=== PATIENT | male | born 1975 | race Caucasian/White ===

== ENCOUNTER → 2020-03-24 | Outpatient (CLI) | payer OTHER ==
[2020-03-25 14:45] LABS: CORONAVIRUS (COVID19) CSH-NRL Negative (Negative)
== END | disposition home or self-care (01) ==
LOC: LAB SHORT 11:52 → LAB EV 11:52
PROVIDERS: Chiropractor
DX: B34.9 Viral infection, unspecified (principal); Z20.828 Contact with and (suspected) exposure to other viral communicable diseases
CPT/HCPCS: U0003

== ENCOUNTER 2023-05-29 07:24 | Day surgery (SDC) | payer OTHER ==
[~2023-05-29] VITALS: Ht 175.3 cm; Wt 97.4 kg
[2023-05-29] MEDS ORDERED: FAMO10 (07:38)
[2023-05-29] MEDS ORDERED: CENTRUM SILVER1 EAC2 (07:38)
[2023-05-29] MEDS ORDERED: Vitamin C100 M1 (07:38)
[2023-05-29] MEDS ORDERED: Chantix1 MG (07:39)
[2023-05-29 09:53] VITALS: BP 133/96
== END 2023-05-29 09:51 | disposition home or self-care (01) ==
LOC: ORSCSDS 07:24
PROVIDERS: Surgery
PROC: 0DB78ZX Excision of Stomach, Pylorus, Via Natural or Artificial Opening Endoscopic, Diagnostic (ICD-10-PCS; principal; 2023-05-29 08:45)
PROC: 0DBN8ZX Excision of Sigmoid Colon, Via Natural or Artificial Opening Endoscopic, Diagnostic (ICD-10-PCS; principal; 2023-05-29 08:45)
PROC: 0DBH8ZX Excision of Cecum, Via Natural or Artificial Opening Endoscopic, Diagnostic (ICD-10-PCS; principal; 2023-05-29 08:45)
PROC: 0DBL8ZX Excision of Transverse Colon, Via Natural or Artificial Opening Endoscopic, Diagnostic (ICD-10-PCS; principal; 2023-05-29 08:45)
PROC: 0DB48ZX Excision of Esophagogastric Junction, Via Natural or Artificial Opening Endoscopic, Diagnostic (ICD-10-PCS; principal; 2023-05-29 08:45)
DX: Z12.11 Encounter for screening for malignant neoplasm of colon (principal); R19.5 Other fecal abnormalities; K21.9 Gastro-esophageal reflux disease without esophagitis; K29.70 Gastritis, unspecified, without bleeding; D12.0 Benign neoplasm of cecum; D12.5 Benign neoplasm of sigmoid colon; K63.5 Polyp of colon; F41.8 Other specified anxiety disorders; E78.5 Hyperlipidemia, unspecified; Z79.899 Other long term (current) drug therapy; K76.0 Fatty (change of) liver, not elsewhere classified
CPT/HCPCS: 88305; 88342; J0461; J2405; J2704; J7120

== ENCOUNTER → 2024-05-12 | Outpatient (CLI) | payer OTHER ==
[~2024-05-12] MED LIST: ATOR40TA PO; BASAGLAR K100 UNIT/1 SC; CENTRUM SILVER1 EAC2; Chantix1 MG; Chantix1 MG PO; DOCU100 PO; FAMO10; FENO67 PO; HUMALOG KW100 UNIT/1 SC; MIRALAX17 GM PO; OMEP20ER PO; Vitamin C100 M1; [UNRECOGNIZED DRUG - OTHER] PO
[2024-05-12 17:20] LABS: Albumin, Blood 3.1 g/dL (3.4-5.0); Albumin/Globulin Ratio 0.6 (0.8-1.8); Bilirubin, Total 1.6 mg/dL (0.1-1.0); Bun/Creatinine Ratio 14.3 (12.0-20.0); Creatinine, Blood 0.84 mg/dL (0.60-1.20); Globulin, Blood 4.9 g/dL (2.2-4.0)
[2024-05-12 17:22] LABS: Calcium, Blood 9.2 mg/dL (8.5-10.1)
[2024-05-12 17:37] LABS: BASOPHILS ABSOLUTE AUTO 0.13 K/mm3 (0.00-0.23); BASOPHILS PERCENT AUTO 0 % (0-2); EOSINOPHILS ABSOLUTE AUTO 0.02 K/mm3 (0.00-0.68); EOSINOPHILS PERCENT AUTO 0 % (0-6); Hematocrit 43.7 % (37.0-53.0); IMMATURE GRAN ABSOLUTE AUTO 0.15 K/mm3 (0.00-0.10); IMMATURE GRAN PERCENT AUTO 1 % (0-1); LYMPHOCYTES ABSOLUTE AUTO 2.75 K/mm3 (0.84-5.20); LYMPHOCYTES PERCENT AUTO 10 % (21-46); MONOCYTES ABSOLUTE AUTO 2.29 K/mm3 (0.16-1.47); MONOCYTES PERCENT AUTO 8 % (4-13); Mean Corpuscular HGB 22.7 pg (26.0-34.0); Mean Corpuscular HGB Conc 34.3 g/dL (31.5-36.5); Mean Corpuscular Volume 66 fL (80-100); Mean Platelet Volume 10.8 fL (9.1-12.4); NEUTROPHILS ABSOLUTE AUTO 23.75 K/mm3 (1.96-9.15); NEUTROPHILS PERCENT AUTO 82 % (41-73); NRBC ABSOLUTE 0.02 K/mm3 (0.00-0.02); NRBC Auto 0.1 /100 WBC (0.0-0.2); Platelet Count 443 K/mm3 (150-400); RDW Coefficient Variation 17.3 % (11.7-14.2); RDW Standard Deviation 34.2 fL (35.1-46.3); Red Blood Cell Count 6.62 M/mm3 (4.30-5.90); White Blood Cell Count 29.09 K/mm3 (4.00-11.30)
== END | disposition home or self-care (01) ==
LOC: LAB SHORT 15:01 → LAB 15:01
PROVIDERS: Physician Assistant
DX: R11.2 Nausea with vomiting, unspecified (principal)
CPT/HCPCS: 80053; 85025

== ENCOUNTER 2024-05-13 07:23 | Inpatient (IN) | payer OTHER ==
[~2024-05-13] VITALS: Ht 170.2 cm; Wt 86.4 kg
[2024-05-13] VITALS (27 sets, daily range): BP systolic 106–161; BP diastolic 48–109
[~2024-05-13 07:23] MED LIST changes: -ATOR40TA PO; -BASAGLAR K100 UNIT/1 SC; -Chantix1 MG PO; -DOCU100 PO; -FENO67 PO; -HUMALOG KW100 UNIT/1 SC; -MIRALAX17 GM PO; -OMEP20ER PO; -[UNRECOGNIZED DRUG - OTHER] PO
[2024-05-13] MEDS ORDERED: Morphine Sulfate 4 MG/1 ML Injection IV ONE (08:15)
[2024-05-13] MEDS ORDERED: NS 1,000 ML IV SCH ×2 (08:15→09:30)
[2024-05-13] MEDS ORDERED: Ondansetron HCl 2 MG / ML 2ML Vial IV ONE (08:15)
[2024-05-13 08:25] LABS: BASOPHILS ABSOLUTE AUTO 0.14 K/mm3 (0.00-0.23); BASOPHILS PERCENT AUTO 0 % (0-2); EOSINOPHILS PERCENT AUTO 0 % (0-6); Hematocrit 45.3 % (37.0-53.0); Hemoglobin 14.6 g/dL (13.5-17.5); IMMATURE GRAN ABSOLUTE AUTO 0.61 K/mm3 (0.00-0.10); IMMATURE GRAN PERCENT AUTO 2 % (0-1); LYMPHOCYTES ABSOLUTE AUTO 2.47 K/mm3 (0.84-5.20); LYMPHOCYTES PERCENT AUTO 7 % (21-46); MONOCYTES ABSOLUTE AUTO 2.94 K/mm3 (0.16-1.47); MONOCYTES PERCENT AUTO 8 % (4-13); Mean Corpuscular HGB 21.7 pg (26.0-34.0); Mean Corpuscular HGB Conc 32.2 g/dL (31.5-36.5); Mean Corpuscular Volume 67 fL (80-100); Mean Platelet Volume 10.8 fL (9.1-12.4); NEUTROPHILS ABSOLUTE AUTO 30.54 K/mm3 (1.96-9.15); NEUTROPHILS PERCENT AUTO 83 % (41-73); NRBC ABSOLUTE 0.03 K/mm3 (0.00-0.02); NRBC Auto 0.1 /100 WBC (0.0-0.2); Platelet Count 531 K/mm3 (150-400); RDW Coefficient Variation 17.6 % (11.7-14.2); RDW Standard Deviation 36.1 fL (35.1-46.3); Red Blood Cell Count 6.72 M/mm3 (4.30-5.90)
[2024-05-13 08:28] LABS: Bicarbonate Venous 9.4 mmol/L (24.0-30.0); PCO2 Venous 26.8 mmHg (38-42); pH Blood Venous 7.05 (7.34-7.37)
[2024-05-13 08:45] LABS: Ethanol (Alcohol), Blood, Med <3 mg/dL
[2024-05-13 09:08] LABS: Alanine Aminotransfer (ALT/SGP 41 U/L (12-78); Albumin, Blood 3.9 g/dL (3.4-5.0); Albumin/Globulin Ratio 0.7 (0.8-1.8); Alk Phos 181 U/L (50-136); Anion Gap 35 mmol/L (3-11); Aspartate Aminotrans (AST/SGOT 17 U/L (12-37); Bilirubin, Total 1.2 mg/dL (0.1-1.0); Blood Urea Nitrogen 29 mg/dL (8-24); Bun/Creatinine Ratio 17.6 (12.0-20.0); CO2, Blood 8 mmol/L (21-32); Calcium, Blood 9.3 mg/dL (8.5-10.1); Chloride, Blood 87 mmol/L (98-108); Creatinine, Blood 1.65 mg/dL (0.60-1.20); Globulin, Blood 5.3 g/dL (2.2-4.0); Glomerular Filtration Rate 52 (60-); Glucose, Blood 962 mg/dL (70-99); Potassium, Blood 5.3 mmol/L (3.5-5.5); Sodium, Blood 125 mmol/L (136-145); Total Protein, Blood 9.2 g/dL (6.4-8.2)
[2024-05-13] MEDS ORDERED: Insulin Human Regular 100 UNIT in NS 100 ML IV SCH (09:30)
[2024-05-13] MEDS ORDERED: Ciprofloxacin 400MG/D5 200ML 200 ML IV ONE (09:30)
[2024-05-13] MEDS ORDERED: MetroNIDAZOLE 500MG/NS 100 ml 100 ML IV ONE (09:30)
[2024-05-13 10:08] LABS: Source, Urine Clean Catch
[2024-05-13 10:11] LABS: Bilirubin, Urine Neg (Neg); Blood, Urine 2+ (Neg); Glucose Qualitative, Urine 4+ (Neg); Ketones, Urine 4+ (Neg); Leukocyte Esterase, Urine Neg (Neg); Nitrite, Urine Neg (Neg); Protein, Urine 2+ (Neg); Specific Gravity, Urine 1.015 (1.003-1.022); Urobilinogen, Urine NORM (Normal)
[2024-05-13 10:18] LABS: Appearance, Urine Clear (Clear); Bacteria Not Seen /hpf; Color, Urine Yellow (P-Yellow); Red Blood Cells, Urine 0-2 /hpf (0-2); Squamous Epithelial Cells Rare /hpf (Few); White Blood Cells, Urine Not Seen /hpf (0-5)
[2024-05-13] MEDS ORDERED: Dextrose 50% 50 ML Vial IV PRN (10:45)
[2024-05-13] MEDS ORDERED: FLU VACC TS2024-25(6MOS UP)/PF 45 MCG/0.5 ML SYRINGE IM PRN (10:45)
[2024-05-13] MEDS ORDERED: Ondansetron HCl 2 MG / ML 2ML Vial IV PRN (10:50)
[2024-05-13] MEDS ORDERED: Lactated Ringer's 1,000 ML IV SCH ×2 (10:50→15:00)
[2024-05-13] MEDS ORDERED: HYDROmorphone HCl/Pf 1MG SYR IV PRN (11:05)
[2024-05-13 11:35] LABS: Bun/Creatinine Ratio 24.3 (12.0-20.0); Calcium, Blood 8.7 mg/dL (8.5-10.1); Creatinine, Blood 1.36 mg/dL (0.60-1.20)
[2024-05-13 11:41] LABS: Magnesium, Blood 2.9 mg/dL (1.6-2.4)
[2024-05-13 11:45] LABS: Glucose, Blood 906 mg/dL (70-99)
[2024-05-13] MEDS ORDERED: Lactated Ringer's 1,000 ML IV ONE ×2 (11:45→15:05)
[2024-05-13 12:08] LABS: Cholesterol 325 mg/dL (50-200); HDL Cholesterol 25 mg/dL (>39); LDL/HDL RATIO Unable to Calculate; Low Density Lipoprotein Chol Unable to Calculate mg/dL (0-110); Triglycerides 1727 mg/dL (30-160); Very Low Density Lipoprot Chol 345 mg/dL (6-32)
[2024-05-13 13:01] LABS: Bun/Creatinine Ratio 26.9 (12.0-20.0); Calcium, Blood 8.7 mg/dL (8.5-10.1); Creatinine, Blood 1.19 mg/dL (0.60-1.20); Potassium, Blood 4.3 mmol/L (3.5-5.5)
[2024-05-13 13:09] LABS: Base Excess Venous -20.9 mmol/L; Bicarbonate Venous 11.2 mmol/L (24.0-30.0); pH Blood Venous 7.19 (7.34-7.37)
[2024-05-13] MEDS ORDERED: [UNRECOGNIZED DRUG - OTHER] PO (14:10)
[2024-05-13] MEDS ORDERED: OMEP20ER PO (14:10)
[2024-05-13] MEDS ORDERED: Chantix1 MG PO (14:11)
[2024-05-13] MEDS ORDERED: Potassium Chl 20MEQ/Water100ML 100 ML IV STA (14:27)
[2024-05-13 15:25] LABS: Bun/Creatinine Ratio 25.8 (12.0-20.0); Calcium, Blood 9.4 mg/dL (8.5-10.1); Creatinine, Blood 1.32 mg/dL (0.60-1.20); Potassium, Blood 4.8 mmol/L (3.5-5.5)
[2024-05-13 15:32] LABS: Glucose, Blood 654 mg/dL (70-99)
[2024-05-13 15:54] LABS: Glucose, Blood 541 mg/dL (70-99)
[2024-05-13] MEDS ORDERED: D5W-1/2NS 1,000 ML IV SCH (15:55)
[2024-05-13 17:14] LABS: Glucose, Blood 604 mg/dL (70-99)
[2024-05-13 18:00] LABS: Bun/Creatinine Ratio 33.9 (12.0-20.0); Calcium, Blood 8.9 mg/dL (8.5-10.1); Creatinine, Blood 1.09 mg/dL (0.60-1.20); Potassium, Blood 4.5 mmol/L (3.5-5.5)
--- NOTE | 2024-05-13 18:16 | NUR ---
DAY SHIFT SUMMARY PT ARRIVED TO ICU AND HAS REMAINED ALERT AND ORIENTED COMMUNICATING APPROPRATELY W STAFF. PT REMAINS ON INSULIN GTT W LR INFUSING AT 200ML/HR. ADDITIONAL 20 MEQ POTASSIUM GIVEN IV. PT'S MONITOR SHOWING ST 120'S W ONE BRIEF EPISODE OF SVT UPON ARRIVAL, EKG DONE AND DR. GOMEZ AWARE OF ECTOPY. PT MAINTAINING SPO2 >92% ON RM AIR. BP WNL AND STABLE. PT AFEBRILE. PT WAS INITIALLY TOLERATING SMALL SIPS OF WATER BUT DID HAVE ONE EPISODE OF EMESIS, ZOFRAN GIVEN PER EMAR. PT MEDICATED FOR PAIN ONCE THIS SHIFT. PT CURRENTLY LYING IN BED W INSULIN GTT AND LR INFUSING. WILL REPORT TO ONCOMING RN.
[2024-05-13 19:32] LABS: Bun/Creatinine Ratio 39.9 (12.0-20.0); Creatinine, Blood 0.95 mg/dL (0.60-1.20); Potassium, Blood 4.6 mmol/L (3.5-5.5)
[2024-05-13] MEDS ORDERED: Temazepam 15 MG Cap PO PRN (19:50)
[2024-05-13] MEDS ORDERED: Lactobacil 2-S.Thermo-Bifido 1 1 Cap PO SCH (21:00)
[2024-05-13 23:38] LABS: Bun/Creatinine Ratio 37.2 (12.0-20.0); Calcium, Blood 8.9 mg/dL (8.5-10.1); Creatinine, Blood 0.91 mg/dL (0.60-1.20); Potassium, Blood 4.2 mmol/L (3.5-5.5)
[2024-05-14] VITALS (45 sets, daily range): BP systolic 114–172; BP diastolic 77–102
[2024-05-14] MEDS ORDERED: Potassium Chl 20MEQ/Water100ML 100 ML IV ONE (00:40)
[2024-05-14 03:58] LABS: BASOPHILS ABSOLUTE AUTO 0.03 K/mm3 (0.00-0.23); BASOPHILS PERCENT AUTO 0 % (0-2); EOSINOPHILS ABSOLUTE AUTO 0.02 K/mm3 (0.00-0.68); EOSINOPHILS PERCENT AUTO 0 % (0-6); Hematocrit 30.3 % (37.0-53.0); Hemoglobin 9.9 g/dL (13.5-17.5); IMMATURE GRAN ABSOLUTE AUTO 0.08 K/mm3 (0.00-0.10); IMMATURE GRAN PERCENT AUTO 1 % (0-1); LYMPHOCYTES ABSOLUTE AUTO 3.45 K/mm3 (0.84-5.20); LYMPHOCYTES PERCENT AUTO 20 % (21-46); MONOCYTES ABSOLUTE AUTO 1.97 K/mm3 (0.16-1.47); MONOCYTES PERCENT AUTO 11 % (4-13); Mean Corpuscular HGB 21.2 pg (26.0-34.0); Mean Corpuscular HGB Conc 32.7 g/dL (31.5-36.5); Mean Corpuscular Volume 65 fL (80-100); Mean Platelet Volume 10.4 fL (9.1-12.4); NEUTROPHILS PERCENT AUTO 68 % (41-73); NRBC ABSOLUTE 0.02 K/mm3 (0.00-0.02); NRBC Auto 0.1 /100 WBC (0.0-0.2); Platelet Count 317 K/mm3 (150-400); RDW Coefficient Variation 15.4 % (11.7-14.2); Red Blood Cell Count 4.66 M/mm3 (4.30-5.90); White Blood Cell Count 17.55 K/mm3 (4.00-11.30)
[2024-05-14 04:27] LABS: Bun/Creatinine Ratio 37.5 (12.0-20.0); Calcium, Blood 8.4 mg/dL (8.5-10.1); Creatinine, Blood 0.77 mg/dL (0.60-1.20); Potassium, Blood 4.5 mmol/L (3.5-5.5)
[2024-05-14 04:32] LABS: Thyroid Stimulating Hormone 0.448 uIU/mL (0.360-4.800); Triglycerides 820 mg/dL (30-160)
--- NOTE | 2024-05-14 06:03 | NUR ---
SHIFT SUMMARY NO ACUTE CHANGES DURING NOC. SLEPT INTERMITTENTLY. REMAINS ON INSULIN GTT- NOW INFUSING AT 7.5 UNITS/HR. D51/2NS INFUSING AT 150MLS/HR. HR 90s THIS AM. BP STABLE, BUT DBP IS OCCASIONALLY ELEVATED. AFEBRILE. RA SATS WNL. RESPIRATIONS EVEN AND UNLABORED. MEDICATED WITH DILAUDID 1MG IV X 2 DOSES FOR C/O ABD/BACK PAIN AND HEADACHE. PT STATES GOOD RELIEF WITH MEDICATION. VOIDING WITHOUT DIFFICULTY. PLAN OF CARE ONGOING. WILL REPORT TO ONCOMING RN WHEN AVAILABLE.
[2024-05-14 07:42] LABS: Bun/Creatinine Ratio 28.9 (12.0-20.0); Calcium, Blood 8.5 mg/dL (8.5-10.1); Creatinine, Blood 0.76 mg/dL (0.60-1.20); Potassium, Blood 3.9 mmol/L (3.5-5.5)
--- NOTE | 2024-05-14 08:33 | NUR ---
ASSUME CARE: BEDSIDE REPORT RECIEVED FROM MARY DUNCAN. PT A/Ox4 AND ABLE TO MAKE NEEDS KNOWN. PT COMPLAINING OF 8/10 PAIN IN HIS BACK, WILL MEDICATE PER EMAR. INSULIN GTT AT 9 U/HR AT SHIFT CHANGE. VSS. MONITOR SHOWS SINUS RYTHM-SINUS TACH RATE 90s-100s. WILL UPDATE NEEDED.
[2024-05-14] MEDS ORDERED: Enoxaparin 40 MG/0.4 ML SYR SC SCH (09:00)
[2024-05-14] MEDS ORDERED: Pantoprazole Sodium 40 MG Injection IV SCH (09:00)
[2024-05-14] MEDS ORDERED: OxyCODONE 10/Acetamin 325 TABLET PO PRN ×2 (10:00→21:30)
[2024-05-14 11:40] LABS: Bun/Creatinine Ratio 27.7 (12.0-20.0); Calcium, Blood 8.6 mg/dL (8.5-10.1); Creatinine, Blood 0.65 mg/dL (0.60-1.20); Potassium, Blood 3.5 mmol/L (3.5-5.5)
[2024-05-14] MEDS ORDERED: Potassium Chl 20MEQ/Water100ML 100 ML IV SCH (12:15)
[2024-05-14 16:01] LABS: Bun/Creatinine Ratio 27.1 (12.0-20.0); Calcium, Blood 8.3 mg/dL (8.5-10.1); Creatinine, Blood 0.59 mg/dL (0.60-1.20); Potassium, Blood 3.8 mmol/L (3.5-5.5)
[2024-05-14] MEDS ORDERED: Insulin Glargine-Yfgn 100 Unit/mL 3 ML SYR SC SCH (16:45)
--- NOTE | 2024-05-14 17:50 | NUR ---
SHIFT SUMMARY: PT A/Ox4 AND PLEASANT W/CARE THROUGHOUT THE DAY. PT COMPLAINS OF CONSTANT PAIN IN HIS BACK, MEDICATED PER EMAR, AND WITH HEATING PAD. INSULIN GTT INFUSING, SEE FLOWSHEET, D51/2NS INFUSING AT 150 ML/HR. PT LABS IMPROVING, DR. FARRAR WAS CALLED REGARDING THIS, PT PLACED ON CLEAR LIQUID DIET AND ORDERS GIVEN FOR LONG ACTING INSULIN. VSS. MONITOR SHOWS SINUS RYTHM TO SINUS TACH RATE 90s-100s. PT COMPLAINED OF IT BEING HARD TO VOID, BLADDER SCAN DONE. STRAIGHT CATH DONE. WILL REPORT TO ONCOMING RN.
--- NOTE | 2024-05-14 19:02 | NUR ---
UPDATE: AFTER GIVING LONG ACTING INSULIN, PT CBG CLIMBED TO 252, DR. FARRAR WAS CALLED REGARDING STARTING A SHORT ACTING INSULIN, ORDERS RECIEVED, SEE EMAR.
[2024-05-14 20:37] LABS: Calcium, Blood 8.1 mg/dL (8.5-10.1); Creatinine, Blood 0.63 mg/dL (0.60-1.20); Potassium, Blood 3.4 mmol/L (3.5-5.5)
[2024-05-14] MEDS ORDERED: Insulin Human Lispro 100 Units/ML 3ML Syringe SC SCH (21:00)
--- NOTE | 2024-05-14 21:09 | NUR ---
ASSUMPTION OF CARE PT LYING IN BED IN NO APPARENT DISTRESS TALKING TO SOSABAS, IN THE ROOM. PT IS ALERT AND ORIENTED X 4. HR SINUS TACH WITH STABLE BPS. SAT OF 97% ON RA. PT C/O MOD PAIN EPIGASTRIC AREA BUT PAIN IS WORSE IN BACK DIRECTLY BEHIND EPIGASTRIC AREA, 10 1.5 HOURS AFTER ADMINISTRATION OF PERCOCET 10MG. DILAUDID WAS INITIALLY TRIED BUT PT VOMITED SHORTLY THEREAFTER. NO NAUSEA AT THIS TIME. PT FEELS MILD URGENCY TO URINATE 1.5 HOURS AFTER STRAIGHT CATH DRAINED 750ML. WILL LOOK TO BLADDER SCAN AGAIN IF NO URINE OUTPUT IN THE NEXT HOUR OR TWO OR IF URGENCY GETS WORSE. PT HAS D51/2 NS INFUSING AT 150ML/HR AND INSULIN IS INFUSING AT 5.7UNITS/HR. DAY TIME NURSE SUGGESTED STARTING LOW SS INSULIN AND THEN TURNING OFF INSULIN DRIP. 1740 LABS, THOUGH, SHOWED AN ANION GAP OF 13 AND POC GLUCOSE OF 228. I WILL CONTACT PROVIDER FOR RECOMMENDATIONS ON CONINTUING INSULIN DRIP. PT HAS CALL LIGHT NEARBY.
--- NOTE | 2024-05-14 21:23 | NUR ---
PROVIDER UPDATE PROVIDER CALLED ABOUT MOST RECENT LABS THAT SHOWED ANION GAP OF 13. HE ORDERED THE INSULIN INFUSION TO REMAIN ON UNTIL GAP CLOSED AND TO REPEAT LABS IN 3 TO 4 HOURS. PROVIDER ALSO ASKED ABOUT PAIN MEDICATION WHICH IS LEAVING PT IN 12/04 PAIN 1 HOUR AFTER ORAL PERCOCET DOSE. PROVIDER ORDERED TO CHANGE SCHEDULE FROM Q 4 TO Q 2 HOURS, PRN.
--- NOTE | 2024-05-14 22:58 | NUR ---
UPDATE- BLADDER SCAN PT CONTINUES TO COMPLAIN OF URGENCY. REQUESTS BLADDER SCAN. BLADDER SCAN SHOWS 550ML. INSTEAD OF STRAIGHT CATH, PT STOOD UP AND EVENTUALLY, AFTER SEVERAL MINUTES, URINATED INTO A URINAL, 495ML.
[2024-05-15] VITALS (22 sets, daily range): BP systolic 105–156; BP diastolic 68–101
[2024-05-15 00:11] LABS: Bun/Creatinine Ratio 17.1 (12.0-20.0); Calcium, Blood 8.3 mg/dL (8.5-10.1); Creatinine, Blood 0.64 mg/dL (0.60-1.20); Potassium, Blood 3.2 mmol/L (3.5-5.5)
[2024-05-15 04:04] LABS: BASOPHILS ABSOLUTE AUTO 0.03 K/mm3 (0.00-0.23); BASOPHILS PERCENT AUTO 0 % (0-2); EOSINOPHILS ABSOLUTE AUTO 0.19 K/mm3 (0.00-0.68); EOSINOPHILS PERCENT AUTO 2 % (0-6); Hematocrit 26.7 % (37.0-53.0); Hemoglobin 8.8 g/dL (13.5-17.5); IMMATURE GRAN ABSOLUTE AUTO 0.08 K/mm3 (0.00-0.10); IMMATURE GRAN PERCENT AUTO 1 % (0-1); LYMPHOCYTES ABSOLUTE AUTO 2.55 K/mm3 (0.84-5.20); LYMPHOCYTES PERCENT AUTO 20 % (21-46); MONOCYTES ABSOLUTE AUTO 1.64 K/mm3 (0.16-1.47); MONOCYTES PERCENT AUTO 13 % (4-13); Mean Corpuscular Volume 64 fL (80-100); Mean Platelet Volume 9.7 fL (9.1-12.4); NEUTROPHILS ABSOLUTE AUTO 8.58 K/mm3 (1.96-9.15); NEUTROPHILS PERCENT AUTO 66 % (41-73); NRBC ABSOLUTE 0.02 K/mm3 (0.00-0.02); NRBC Auto 0.2 /100 WBC (0.0-0.2); Platelet Count 240 K/mm3 (150-400); RDW Coefficient Variation 15.1 % (11.7-14.2); RDW Standard Deviation 33.4 fL (35.1-46.3); White Blood Cell Count 13.07 K/mm3 (4.00-11.30)
[2024-05-15 04:48] LABS: Albumin, Blood 2.4 g/dL (3.4-5.0); Albumin/Globulin Ratio 0.7 (0.8-1.8); Bilirubin, Total 0.8 mg/dL (0.1-1.0); Bun/Creatinine Ratio 14.1 (12.0-20.0); Calcium, Blood 8.6 mg/dL (8.5-10.1); Creatinine, Blood 0.64 mg/dL (0.60-1.20); Globulin, Blood 3.5 g/dL (2.2-4.0); Potassium, Blood 3.1 mmol/L (3.5-5.5)
[2024-05-15 04:49] LABS: Total Protein, Blood 5.9 g/dL (6.4-8.2)
[2024-05-15] MEDS ORDERED: Potassium Chl 20MEQ/Water100ML 100 ML IV SCH (05:45)
--- NOTE | 2024-05-15 06:29 | NUR ---
SHIFT SUMMARY\ PT LYING IN BED SLEEPING. HE AWAKES TO VOICE AND IS ALERT AND ORIENTED TO ALL. HR NSR IN THE 80'S AND 90'S. BP STABLE. SATURATION > 95% ON RA. NO N/V. MILD APPETITE. PT DRANK ORANGE JUICE (DIDN'T LIKE) AND ATE CHEESE AND CRACKERS WITHOUT NAUSEA. EPIGASTRIC/CHEST/BACK PAIN CONTINUES AND HAS BEEN TREATED WITH PRN PERCOCET ON AVERAGE Q 3-4 HRS. PT APPEARED TO HAVE RETENTION ISUES EARLY IN SHIFT WHCIH WERE FIXED BY PT STANDING UP AND URINATING. PT STEADY ON FEET. PT WAS FINALLY ABLE TO URINATE BY HIMSELF WHILE LYING IN BED. POTASSIUM IS BEING REPLACED. D51/2NS IS INFUSING AT 150ML PER HOUR. MORNING LABS SHOW CLOSED ANION GAP. PT HAS CALL LIGHT NEARBY.
--- NOTE | 2024-05-15 08:56 | NUR ---
ASSUME CARE: BEDSIDE REPORT RECIEVED FROM MARY DAVID. PT A/Ox4 AND ABLE TO MAKE NEEDS KNOWN. VSS. INSULING GTT AT 4 U/HR AT SHIFT CHANGE. CALL LIGHT IN REACH. WILL UPDATE NEEDED.
[2024-05-15 09:15] LABS: Bun/Creatinine Ratio 15.6 (12.0-20.0); Calcium, Blood 8.3 mg/dL (8.5-10.1); Creatinine, Blood 0.58 mg/dL (0.60-1.20); Potassium, Blood 3.5 mmol/L (3.5-5.5)
[2024-05-15 13:06] LABS: Bun/Creatinine Ratio 10.4 (12.0-20.0); Calcium, Blood 8.2 mg/dL (8.5-10.1); Creatinine, Blood 0.58 mg/dL (0.60-1.20); Potassium, Blood 3.2 mmol/L (3.5-5.5)
[2024-05-15] MEDS ORDERED: Insulin Glargine-Yfgn 100 Unit/mL 3 ML SYR SC ONE (13:45)
[2024-05-15] MEDS ORDERED: Potassium Chloride 20 MEQ TabCR PO ONE (13:50)
[2024-05-15] MEDS ORDERED: Insulin Human Lispro 100 Units/ML 3ML Syringe SC SCH ×2 (16:30→21:00)
--- NOTE | 2024-05-15 18:51 | NUR ---
SHIFT SUMMARY: PT A/Ox4 THROUGHOUT THE DAY AND ABLE TO MAKE NEEDS KNOWN. VSS, MONITOR SHOWS SR-ST RATE 90s-100s. INSULIN GTT AND D51/2 NS OFF AT 1500. PT ON FULL LIQUID DIET, ABLE TO TOLERATE PO INTAKE. SOME NAUSEA THIS EVENING, MEDICATED PER EMAR. PT PAIN SEEMS TO BE MORE CONTROLLED, MEDICATED PER EMAR THROUGHOUT THE DAY. PT ABLE TO URINATE STANDING AT BEDSIDE, GOOD OUTPUT TODAY. FAMILY IN AND OUT INTERMITTENTLY. WILL REPORT TO ONCOMING RN.
--- NOTE | 2024-05-15 20:16 | NUR ---
PT LYING IN BED IN NO APPARENT DISTRESS. PT IS ALERT AND ORIENTED X 4. HR SINUS TACH VS NSR WITH STABLE BPS. SAT OF 97% ON RA. PT C/O MOD PAIN EPIGASTRIC AREA BUT PAIN IS WORSE IN BACK DIRECTLY BEHIND EPIGASTRIC AREA, 01/04. WILL MEDICATE PER JUL. 10/04 NAUSEA AT THIS TIME. PT DECLINED WANTING ME TO ASK PROVIDER FOR ADDITIONAL NAUSEA MEDICATION (ZOFRAN ADMINISTERED 2 HR PRIOR TO ASSESSMENT). PT IS SALINE LOCKED. PT HAS CALL LIGHT NEARBY.
[2024-05-15] MEDS ORDERED: Metoclopramide HCl 10 MG Tab PO SCH (21:00)
[2024-05-15] MEDS ORDERED: Acetaminophen 500 MG Tab PO PRN (21:35)
[2024-05-15 22:05] LABS: Bun/Creatinine Ratio 11.3 (12.0-20.0); Calcium, Blood 8.5 mg/dL (8.5-10.1); Creatinine, Blood 0.62 mg/dL (0.60-1.20); Potassium, Blood 3.4 mmol/L (3.5-5.5)
--- NOTE | 2024-05-15 22:28 | NUR ---
PROVIDER CALLED TO INCREASED SS FROM LOW TO MEDIUM. ALSO ASKED FOR TYLENOL FOR PT'S HEADACHE, WHICH WAS PROVIDED. DISCUSSION ABOUT STATUS CHANGE TOOK PLACE. PROVIDER SAID TO ORDER BMP AND THEN LOOK AT RESULTS FIRST.
[2024-05-16] VITALS (20 sets, daily range): BP systolic 111–171; BP diastolic 70–158
[2024-05-16 04:34] LABS: BASOPHILS ABSOLUTE AUTO 0.05 K/mm3 (0.00-0.23); BASOPHILS PERCENT AUTO 0 % (0-2); EOSINOPHILS PERCENT AUTO 2 % (0-6); Hematocrit 23.6 % (37.0-53.0); Hemoglobin 7.9 g/dL (13.5-17.5); IMMATURE GRAN ABSOLUTE AUTO 0.16 K/mm3 (0.00-0.10); IMMATURE GRAN PERCENT AUTO 1 % (0-1); LYMPHOCYTES ABSOLUTE AUTO 2.68 K/mm3 (0.84-5.20); LYMPHOCYTES PERCENT AUTO 19 % (21-46); MONOCYTES ABSOLUTE AUTO 1.53 K/mm3 (0.16-1.47); MONOCYTES PERCENT AUTO 11 % (4-13); Mean Corpuscular HGB 21.3 pg (26.0-34.0); Mean Corpuscular HGB Conc 33.5 g/dL (31.5-36.5); Mean Corpuscular Volume 64 fL (80-100); Mean Platelet Volume 9.7 fL (9.1-12.4); NEUTROPHILS ABSOLUTE AUTO 9.17 K/mm3 (1.96-9.15); NEUTROPHILS PERCENT AUTO 66 % (41-73); Platelet Count 260 K/mm3 (150-400); RDW Coefficient Variation 15.1 % (11.7-14.2); RDW Standard Deviation 33.5 fL (35.1-46.3); Red Blood Cell Count 3.71 M/mm3 (4.30-5.90); White Blood Cell Count 13.79 K/mm3 (4.00-11.30)
[2024-05-16 05:22] LABS: Calcium, Blood 8.5 mg/dL (8.5-10.1); Creatinine, Blood 0.58 mg/dL (0.60-1.20); Potassium, Blood 3.3 mmol/L (3.5-5.5)
--- NOTE | 2024-05-16 06:15 | NUR ---
SHIFT SUMMARY PT LYING IN BED SLEEPING. HE AWAKES TO VOICE AND IS ALERT AND ORIENTED X 4. PT SAYS BLURRY VISION IS IMPROVED. SINUS RHYTHM WITH RATE 80-110 AND STABLE BP, SYSTOLIC 110-140. SATURATION > 95% ON RA. NO CHEST PAIN/PRESSURE, N/V. PT ADMITS TO ABDOMINAL PAIN IN EPIGASTRUM, SHARPER THAN PREVIOUS PAIN, 8/10. PT MEDICATED WITH OXYCODONE FOR THIRD TIME THIS SHIFT. PT AMBULATES WELL AND USES URINAL INDEPENDENTLY. PT LEFT IN ROOM WITH CALL LIGHT HANDY. REPORT WILL BE GIVEN TO ONCOMING NURSE.
[2024-05-16] MEDS ORDERED: Potassium Chl 20MEQ/Water100ML 100 ML IV SCH (06:30)
[2024-05-16] MEDS ORDERED: Potassium Chloride 40 MEQ in NS 250 ML IV ONE (07:05)
[2024-05-16] MEDS ORDERED: Potassium Chloride 20 MEQ TabCR PO ONE (08:00)
[2024-05-16] MEDS ORDERED: Insulin Glargine-Yfgn 100 Unit/mL 3 ML SYR SC SCH (09:00)
[2024-05-16] MEDS ORDERED: OxyCODONE 5 mg/Acetamin 325 mg TABLET PO PRN (13:00)
--- NOTE | 2024-05-16 18:26 | NUR ---
PATIENT WAS AWAKE ALERT AND ORIENTED, VITAL WERE STABLE, ACHS FSBS, PATIENT PAIN TREATED WITH PRN, SEE EMAR, PT ON RA, PT TOLERATING FOOD, AND NO COMPLAINTS OF N/V, PT REFUSED GETTING UP TO THE CHAIR, PG TO MERARI SALINE LOCKED WITH + BLOOD DRAW, VOIDING WITH URINAL, LONG ACTING INSULIN INCREAsed today. WILL CONTINUE TO MONITOR AND REPORT TO ONCOMING NURSE
--- NOTE | 2024-05-16 21:14 | NUR ---
ASSUMPTION OF CARE PT LYING IN BED IN NO APPARENT DISTRESS. PT IS ALERT AND ORIENTED X 4. HR SINUS TACH VS NSR WITH STABLE BPS. SAT OF 97% ON RA. PT C/O MOD PAIN EPIGASTRIC AREA BUT PAIN IS WORSE IN BACK DIRECTLY BEHIND EPIGASTRIC AREA, 01/04. WILL MEDICATE PER JUL. NO NAUSEA AT THIS TIME. PT IS SALINE LOCKED. PT HAS CALL LIGHT NEARBY.
[2024-05-17] VITALS (12 sets, daily range): BP systolic 116–141; BP diastolic 73–116
[2024-05-17 04:10] LABS: BASOPHILS ABSOLUTE AUTO 0.05 K/mm3 (0.00-0.23); BASOPHILS PERCENT AUTO 0 % (0-2); EOSINOPHILS ABSOLUTE AUTO 0.25 K/mm3 (0.00-0.68); EOSINOPHILS PERCENT AUTO 2 % (0-6); Hematocrit 24.5 % (37.0-53.0); IMMATURE GRAN ABSOLUTE AUTO 0.54 K/mm3 (0.00-0.10); IMMATURE GRAN PERCENT AUTO 3 % (0-1); LYMPHOCYTES ABSOLUTE AUTO 3.26 K/mm3 (0.84-5.20); LYMPHOCYTES PERCENT AUTO 19 % (21-46); MONOCYTES ABSOLUTE AUTO 1.96 K/mm3 (0.16-1.47); MONOCYTES PERCENT AUTO 12 % (4-13); Mean Corpuscular HGB 21.1 pg (26.0-34.0); Mean Corpuscular HGB Conc 32.7 g/dL (31.5-36.5); Mean Corpuscular Volume 65 fL (80-100); Mean Platelet Volume 9.7 fL (9.1-12.4); NEUTROPHILS ABSOLUTE AUTO 10.96 K/mm3 (1.96-9.15); NEUTROPHILS PERCENT AUTO 64 % (41-73); NRBC ABSOLUTE 0.09 K/mm3 (0.00-0.02); NRBC Auto 0.5 /100 WBC (0.0-0.2); Platelet Count 298 K/mm3 (150-400); RDW Coefficient Variation 14.6 % (11.7-14.2); RDW Standard Deviation 33.4 fL (35.1-46.3); Red Blood Cell Count 3.79 M/mm3 (4.30-5.90); White Blood Cell Count 17.02 K/mm3 (4.00-11.30)
[2024-05-17 04:46] LABS: Bun/Creatinine Ratio 12.5 (12.0-20.0); Calcium, Blood 8.7 mg/dL (8.5-10.1); Creatinine, Blood 0.56 mg/dL (0.60-1.20); Potassium, Blood 3.4 mmol/L (3.5-5.5)
--- NOTE | 2024-05-17 07:21 | NUR ---
SHIFT SUMMARY PT LYING IN BED SLEEPING. AWAKES TO VOICE AND IS THEN ALERT AND ORIENTED. PAIN CONTINUED TO BE AN ISSUE THAT HAS NOT NOTABLY DECREASED SINCE ADMISSION TO ICU. PT MEDICATED PER JUL. HR NSR 90-110, WITH STABLE BPS THROUGHOUT SHIFT. SATURATION >95% ON RA. NO CHEST PAIN/PRESSURE. PT SAYS THE LOCATION OF AB PAIN HAS SHIFTED/EXPANDED TO INCLUDE EPIGASTRUM AND UMBILICAL REGION. LAST BM ON 05/12, AND A SMALL ONE AT THAT. BOWEL REGIMEN DISCUSSED WITH PT AND THEN WITH ONCOMING NURSE. PT INDEPENDENT WITH URINAL IN BED. SALINE LOCKED WITH LAST PIV REMOVED DURING SHIFT. POWERGLIDE IN LEFT STILL DRAWS WITH ARM ABDUCTED. PT HAS BEEN OBTAINED MED STATUS.
[2024-05-17] MEDS ORDERED: Potassium Chloride 20 MEQ TabCR PO ONE (08:45)
[2024-05-17] MEDS ORDERED: Fenofibrate, Micronized 134 MG Capsule PO SCH (09:00)
[2024-05-17] MEDS ORDERED: Atorvastatin 40 MG Tab PO SCH (09:00)
[2024-05-17] MEDS ORDERED: Docusate Sodium 100 MG Cap PO SCH (09:00)
[2024-05-17] MEDS ORDERED: Insulin Glargine-Yfgn 100 Unit/mL 3 ML SYR SC SCH (09:00)
[2024-05-17] MEDS ORDERED: Polyethylene Glycol 3350 17 gm PO SCH (09:00)
--- NOTE | 2024-05-17 16:18 | NUR ---
PATIENT ARRIVED TO MEDICAL FLOOR. A/O X4. SKIN INTACT PER 2 RN CHECK.
[2024-05-17] MEDS ORDERED: Insulin Human Lispro 100 Units/ML 3ML Syringe SC SCH (16:30)
[2024-05-18 02:07] VITALS: BP 119/82
[2024-05-18 05:10] LABS: Hematocrit 26.7 % (37.0-53.0); Hemoglobin 8.8 g/dL (13.5-17.5); Mean Corpuscular HGB 21.3 pg (26.0-34.0); Mean Corpuscular Volume 65 fL (80-100); Mean Platelet Volume 9.7 fL (9.1-12.4); NRBC ABSOLUTE 0.15 K/mm3 (0.00-0.02); NRBC Auto 0.8 /100 WBC (0.0-0.2); Platelet Count 382 K/mm3 (150-400); RDW Coefficient Variation 14.8 % (11.7-14.2); RDW Standard Deviation 33.2 fL (35.1-46.3); Red Blood Cell Count 4.14 M/mm3 (4.30-5.90); White Blood Cell Count 17.96 K/mm3 (4.00-11.30)
[2024-05-18 05:30] LABS: Bun/Creatinine Ratio 16.6 (12.0-20.0); Calcium, Blood 9.1 mg/dL (8.5-10.1); Creatinine, Blood 0.6 mg/dL (0.60-1.20); Potassium, Blood 3.5 mmol/L (3.5-5.5)
[2024-05-18] MEDS ORDERED: Pantoprazole Sodium 40 MG Tab PO SCH (06:00)
--- NOTE | 2024-05-18 06:01 | NUR ---
SHIFT SUMMARY: Pt is admitted for DKA and is a full code. Is alert and able to make needs known. ADLs have been IND. pain has been managed with PRN medication. Tell reports sinus in the 90s.
[2024-05-18 06:04] LABS: BAND PERCENT MAN 5 % (0-8); BASOPHILS PERCENT MAN 0 % (0-2); EOSINOPHILS PERCENT MAN 0 % (0-6); LYMPHOCYTES ABSOLUTE MAN 5.56 K/mm3 (0.84-5.20); LYMPHOCYTES PERCENT MAN 31 % (21-46); METAMYELOCYTE ABSOLUTE MAN 0.17 K/mm3 (0.00-0.00); METAMYELOCYTE PERCENT MAN 1 % (0-0); MONOCYTES ABSOLUTE MAN 1.61 K/mm3 (0.16-1.47); MONOCYTES PERCENT MAN 9 % (4-13); NEUTROPHILS ABSOLUTE MAN 10.59 K/mm3 (1.96-9.15); SEG NEUTROPHILS PERCENT MAN 54 % (41-73); TOTAL CELLS COUNTED 100
[2024-05-18 07:46] VITALS: BP 117/77
[2024-05-18] MEDS ORDERED: Insulin Glargine-Yfgn 100 Unit/mL 3 ML SYR SC ONE (11:00)
--- NOTE | 2024-05-18 11:37 | NUR ---
CALLED DR GAMA, NO ANSWER, LEFT MESSAGE. INQUIRING ABOUT SENDING AN OCCULT SAMPLE FOR DARK TARRY STOOL. WILL WAIT FOR CALL BACK
[2024-05-18] MEDS ORDERED: ATOR40TA PO (14:27)
[2024-05-18] MEDS ORDERED: DOCU100 PO (14:28)
[2024-05-18] MEDS ORDERED: FENO67 PO (14:30)
[2024-05-18] MEDS ORDERED: BASAGLAR K100 UNIT/1 SC (14:32)
[2024-05-18] MEDS ORDERED: HUMALOG KW100 UNIT/1 SC (14:34)
[2024-05-18] MEDS ORDERED: MIRALAX17 GM PO (14:36)
--- NOTE | 2024-05-18 19:11 | NUR ---
DISCHARGE SUMMARY PATIENT DISCHARGED HOME THIS SHIFT WITH TO DRIVE. SCRIPT FOR DIABETIC SUPPLIES WAS SENT PREVIOUSLY WITH S/O AND WAS FILLED, S/O CONFIRMED. DISCHARGE PACKET WAS GIVEN AND REVIEWED, BOTH VERBALIZED UNDERSTANDING AND HAD QUESTIONS ANSWERED. POWERGLIDE REMOVED WITHOUT COMPLICATION.
[2024-05-19] MEDS ORDERED: Insulin Glargine-Yfgn 100 Unit/mL 3 ML SYR SC SCH (09:00)
== END 2024-05-18 17:49 | disposition home or self-care (01) | DRG 438 ==
LOC: ER 07:23 → ERHOLD 11:54 → ICUE 11:54 → MEDS 05-17 16:30
PROVIDERS: Emergency Medicine; Family Medicine; Internal Medicine; Nurse Practitioner Acute Care; Student in an Organized Health Care Education/Training Program; ADMIT Internal Medicine
DX: K85.90 Acute pancreatitis without necrosis or infection, unspecified (principal); E11.10 Type 2 diabetes mellitus with ketoacidosis without coma; E87.1 Hypo-osmolality and hyponatremia; N17.9 Acute kidney failure, unspecified; K21.9 Gastro-esophageal reflux disease without esophagitis; D56.3 Thalassemia minor; E11.65 Type 2 diabetes mellitus with hyperglycemia; K29.80 Duodenitis without bleeding; E78.1 Pure hyperglyceridemia; K76.0 Fatty (change of) liver, not elsewhere classified; Z87.891 Personal history of nicotine dependence; Z79.899 Other long term (current) drug therapy; E86.0 Dehydration; E87.8 Other disorders of electrolyte and fluid balance, not elsewhere classified
CPT/HCPCS: 51701; 74177; 80048; 80053; 80061; 80320; 81001; 82010; 82803; 82947; 83036; 83605; 83690; 83735; 84443; 84478; 85025; 93005; 93010; 94762; 96361; 96365-59; 96375; 99285-25; A9270; C1751; J0744; J1171; J1650; J1815; J2270; J2405; J2470; J3480; J7030; J7042; J7050; J7120; Q9967

== ENCOUNTER 2024-07-23 15:44 | Inpatient (IN) | payer OTHER ==
[~2024-07-23] VITALS: Ht 175.3 cm; Wt 88.1 kg
[~2024-07-23 15:44] MED LIST changes: +ATOR40TA PO; +BASAGLAR K100 UNIT/1 SC; +Chantix1 MG PO; +DOCU100 PO; +FENO67 PO; +HUMALOG KW100 UNIT/1 SC; +MIRALAX17 GM PO; +OMEP20ER PO; +[UNRECOGNIZED DRUG - OTHER] PO
[2024-07-23] MEDS ORDERED: Morphine Sulfate 4 MG/1 ML Injection IV ONE ×2 (19:25→20:05)
[2024-07-23 20:04] LABS: BASOPHILS ABSOLUTE AUTO 0.05 K/mm3 (0.00-0.23); BASOPHILS PERCENT AUTO 0 % (0-2); EOSINOPHILS ABSOLUTE AUTO 0.15 K/mm3 (0.00-0.68); EOSINOPHILS PERCENT AUTO 1 % (0-6); Hematocrit 37.4 % (37.0-53.0); Hemoglobin 12.1 g/dL (13.5-17.5); Mean Corpuscular HGB 20.7 pg (26.0-34.0); Mean Corpuscular HGB Conc 32.4 g/dL (31.5-36.5); Mean Corpuscular Volume 64 fL (80-100); Mean Platelet Volume 9.4 fL (9.1-12.4); Platelet Count 361 K/mm3 (150-400); RDW Coefficient Variation 14.3 % (11.7-14.2); RDW Standard Deviation 31.4 fL (35.1-46.3); Red Blood Cell Count 5.85 M/mm3 (4.30-5.90); White Blood Cell Count 18.46 K/mm3 (4.00-11.30)
[2024-07-23] MEDS ORDERED: Piperacillin/Tazobactam Sod 4.5 GM in NS 100 ML IV ONE (20:05)
[2024-07-23 20:07] LABS: IMMATURE GRAN ABSOLUTE AUTO 0.08 K/mm3 (0.00-0.10); IMMATURE GRAN PERCENT AUTO 0 % (0-1); LYMPHOCYTES ABSOLUTE AUTO 5.18 K/mm3 (0.84-5.20); LYMPHOCYTES PERCENT AUTO 28 % (21-46); MONOCYTES ABSOLUTE AUTO 1.72 K/mm3 (0.16-1.47); MONOCYTES PERCENT AUTO 9 % (4-13); NEUTROPHILS ABSOLUTE AUTO 11.28 K/mm3 (1.96-9.15); NEUTROPHILS PERCENT AUTO 61 % (41-73)
[2024-07-23 20:24] LABS: Albumin, Blood 3.9 g/dL (3.4-5.0); Bilirubin, Total 0.5 mg/dL (0.1-1.0); Bun/Creatinine Ratio 19.5 (12.0-20.0); Calcium, Blood 9.4 mg/dL (8.5-10.1); Creatinine, Blood 0.82 mg/dL (0.60-1.20); Globulin, Blood 3.8 g/dL (2.2-4.0); Magnesium, Blood 1.9 mg/dL (1.6-2.4); Potassium, Blood 4.2 mmol/L (3.5-5.5); Total Protein, Blood 7.7 g/dL (6.4-8.2)
[2024-07-23] MEDS ORDERED: Ondansetron HCl 2 MG / ML 2ML Vial IV PRN (20:55)
[2024-07-23] MEDS ORDERED: Metoclopramide HCl 5MG / ML 2ML Vial IV PRN (20:55)
[2024-07-23] MEDS ORDERED: FLU VACC TS2024-25(6MOS UP)/PF 45 MCG/0.5 ML SYRINGE IM ONE (20:55)
[2024-07-23] MEDS ORDERED: Lactated Ringer's 1,000 ML IV SCH (20:55)
[2024-07-23] MEDS ORDERED: FentaNYL Citrate 50 MCG/ML 2 ML Injection IV PRN (21:00)
[2024-07-23] MEDS ORDERED: Lactobacil 2-S.Thermo-Bifido 1 1 Cap PO SCH (21:00)
[2024-07-23 21:16] LABS: Source, Urine Clean Catch
[2024-07-23 21:19] LABS: Bilirubin, Urine Neg (Neg); Blood, Urine Neg (Neg); Glucose Qualitative, Urine Neg (Neg); Ketones, Urine Neg (Neg); Leukocyte Esterase, Urine Neg (Neg); Nitrite, Urine Neg (Neg); Protein, Urine Neg (Neg); Specific Gravity, Urine 1.015 (1.003-1.022); Urobilinogen, Urine NORM (Normal)
[2024-07-23 21:28] LABS: Appearance, Urine Clear (Clear); Color, Urine Yellow (P-Yellow)
[2024-07-23 22:20] VITALS: BP 118/79
--- NOTE | 2024-07-23 22:20 | NUR ---
PT HERE VIA WHEELCHAIR. PT IS AMBULATORY TO MEDICAL FLOOR BED. PT ORIENTED TO ROOM/CALL LIGHT/BATHROOM. PT DENIES ANY NAUSEA, SOB, HEADACHE, OR CHEST PAIN. PT REPORTS LOWER ABDOMINAL PAIN - WILL MEDICATE PER EMAR. PT IS ON A CLEAR LIQUID DIET - CLEAR LIQUIDS PROVIDED. CALL LIGHT PLACED NEXT TO PT. NO OTHER REQUESTS AT THIS TIME.
[2024-07-24] MEDS ORDERED: Insulin Human Lispro 100 Units/ML 3ML Syringe SC SCH
[2024-07-24] MEDS ORDERED: Piperacillin/Tazobactam Sod 4.5 GM in NS 100 ML IV SCH (01:00)
[2024-07-24] MEDS ORDERED: Melatonin 5 MG Tablet PO PRN (01:20)
[2024-07-24 02:49] VITALS: BP 108/76
[2024-07-24 04:47] LABS: Hematocrit 35.2 % (37.0-53.0); Hemoglobin 11.4 g/dL (13.5-17.5); Mean Corpuscular HGB 20.5 pg (26.0-34.0); Mean Corpuscular HGB Conc 32.4 g/dL (31.5-36.5); Mean Corpuscular Volume 63 fL (80-100); Mean Platelet Volume 9.7 fL (9.1-12.4); Platelet Count 357 K/mm3 (150-400); RDW Coefficient Variation 14.4 % (11.7-14.2); RDW Standard Deviation 31.8 fL (35.1-46.3); Red Blood Cell Count 5.56 M/mm3 (4.30-5.90)
[2024-07-24 05:02] LABS: International Normalized Ratio 1.12; Prothrombin Time Results 11.9 Sec (9.7-11.5)
[2024-07-24 05:08] LABS: Albumin, Blood 3.6 g/dL (3.4-5.0); Bilirubin, Total 0.6 mg/dL (0.1-1.0); Bun/Creatinine Ratio 16.6 (12.0-20.0); Creatinine, Blood 0.91 mg/dL (0.60-1.20); Globulin, Blood 3.7 g/dL (2.2-4.0); Magnesium, Blood 2.1 mg/dL (1.6-2.4); Potassium, Blood 3.6 mmol/L (3.5-5.5); Total Protein, Blood 7.3 g/dL (6.4-8.2)
[2024-07-24 05:20] LABS: BAND PERCENT MAN 1 % (0-8); BASOPHILS PERCENT MAN 0 % (0-2); EOSINOPHILS ABSOLUTE MAN 0.27 K/mm3 (0.00-0.68); EOSINOPHILS PERCENT MAN 2 % (0-6); LYMPHOCYTES % ATYPICAL MANUAL 1 % (0-0); LYMPHOCYTES ABSOLUTE MAN 4.21 K/mm3 (0.84-5.20); LYMPHOCYTES PERCENT MAN 30 % (21-46); MONOCYTES ABSOLUTE MAN 1.08 K/mm3 (0.16-1.47); MONOCYTES PERCENT MAN 8 % (4-13); NEUTROPHILS ABSOLUTE MAN 8.02 K/mm3 (1.96-9.15); SEG NEUTROPHILS PERCENT MAN 58 % (41-73); TOTAL CELLS COUNTED 100
[2024-07-24] MEDS ORDERED: Omeprazole 20 MG CapCR PO SCH (06:00)
[2024-07-24] MEDS ORDERED: FentaNYL Citrate 50 MCG/ML 2 ML Injection IV PRN (06:50)
[2024-07-24 07:38] VITALS: BP 102/77
[2024-07-24] MEDS ORDERED: Insulin Glargine-Yfgn 100 Unit/mL 3 ML SYR SC SCH (09:00)
[2024-07-24] MEDS ORDERED: HYDROmorphone HCl 0.5 MG/0.5 ML SYR IV PRN (11:05)
[2024-07-24 15:35] VITALS: BP 131/82
--- NOTE | 2024-07-24 17:30 | NUR ---
CHANGED ROOMS WITH PT TODAY. PT HAD C/O PAIN THROUGH SHIFT. SEE EMAR FORFREQUENCY AND DETAILS. PT ON CLEARS ONLY TILL MIDNIGHT. PT HAS NO QUESTIONS OR CONCERNS AT THIS TIME
[2024-07-24 19:33] VITALS: BP 115/73
[2024-07-25 04:35] VITALS: BP 116/87
--- NOTE | 2024-07-25 04:43 | NUR ---
SHIFT SUMMARY NOC PT A/O X 4. PLEASANT AND COOPERATIVE WITH CARE. VSS. NO ACUTE EVENTS TO REPORT. PT LOWER ABD PAIN BEING MANAGED PER EMAR. PT HAS BEEN NPO SINCE MIDNIGHT FOR POSSIBLE SURGICAL INTERVENTION PENDING CT SCAN. LR INFUSING @ 125 ML/HR . PT Q6H CBG WIH MIDNIGHT 97 AND 0600 . PT CURRENTLY RESTING WITH BED IN LOWEST POSITION, AND CALL LIGHT WITHIN REACH.
[2024-07-25 05:47] LABS: BASOPHILS ABSOLUTE AUTO 0.03 K/mm3 (0.00-0.23); BASOPHILS PERCENT AUTO 0 % (0-2); EOSINOPHILS ABSOLUTE AUTO 0.32 K/mm3 (0.00-0.68); EOSINOPHILS PERCENT AUTO 3 % (0-6); Hematocrit 33.2 % (37.0-53.0); Hemoglobin 10.5 g/dL (13.5-17.5); IMMATURE GRAN ABSOLUTE AUTO 0.02 K/mm3 (0.00-0.10); IMMATURE GRAN PERCENT AUTO 0 % (0-1); LYMPHOCYTES ABSOLUTE AUTO 3.83 K/mm3 (0.84-5.20); LYMPHOCYTES PERCENT AUTO 36 % (21-46); MONOCYTES ABSOLUTE AUTO 0.86 K/mm3 (0.16-1.47); MONOCYTES PERCENT AUTO 8 % (4-13); Mean Corpuscular HGB 20.4 pg (26.0-34.0); Mean Corpuscular HGB Conc 31.6 g/dL (31.5-36.5); Mean Corpuscular Volume 65 fL (80-100); NEUTROPHILS PERCENT AUTO 52 % (41-73); Platelet Count 343 K/mm3 (150-400); RDW Coefficient Variation 14.2 % (11.7-14.2); RDW Standard Deviation 32.1 fL (35.1-46.3); Red Blood Cell Count 5.15 M/mm3 (4.30-5.90); White Blood Cell Count 10.56 K/mm3 (4.00-11.30)
[2024-07-25 06:11] LABS: Bun/Creatinine Ratio 15.7 (12.0-20.0); Calcium, Blood 8.8 mg/dL (8.5-10.1); Creatinine, Blood 0.83 mg/dL (0.60-1.20); Potassium, Blood 3.9 mmol/L (3.5-5.5)
[2024-07-25 07:27] VITALS: BP 114/98
[2024-07-25 16:13] VITALS: BP 134/89
[2024-07-25 19:14] VITALS: BP 132/77
--- NOTE | 2024-07-25 19:36 | NUR ---
ASSUMED CARE OF PT PT IS PLEASENT AND A/O X 4 CALLS APPROPRIATLY AND CAN MAKE NEEDS KNOWN. SAW PT TODAY AND STATED THAT AT THIS POINT THERE WOULD BE NO SX AND THEY WOULD CONT WITH REST AND ANTIBIOTICS. PT WAS VERY HAPPY WITH THIS DECISION. PT DIET WAS ADVANCED TO CLR LIQ AND SO FAR HAS NATANAEL WELL.
--- NOTE | 2024-07-26 00:45 | NUR ---
PT RESTING IN BED. PT REPORTS HIS HEADACHE IMPROVED AFTER THE PAIN MEDICATION, ENOUGH SO HE COULD "SLEEP FOR AWHILE." PT DENIES ANY OTHER REQUESTS AT THIS TIME. FLUIDS AT BEDSIDE. CALL LIGHT WITHIN REACH. BED IN LOW POSITION.
[2024-07-26 04:34] VITALS: BP 132/84
[2024-07-26 05:09] LABS: BASOPHILS ABSOLUTE AUTO 0.05 K/mm3 (0.00-0.23); BASOPHILS PERCENT AUTO 1 % (0-2); EOSINOPHILS ABSOLUTE AUTO 0.35 K/mm3 (0.00-0.68); EOSINOPHILS PERCENT AUTO 4 % (0-6); Hematocrit 35.4 % (37.0-53.0); IMMATURE GRAN ABSOLUTE AUTO 0.02 K/mm3 (0.00-0.10); IMMATURE GRAN PERCENT AUTO 0 % (0-1); LYMPHOCYTES ABSOLUTE AUTO 3.97 K/mm3 (0.84-5.20); LYMPHOCYTES PERCENT AUTO 44 % (21-46); MONOCYTES ABSOLUTE AUTO 0.71 K/mm3 (0.16-1.47); MONOCYTES PERCENT AUTO 8 % (4-13); Mean Corpuscular HGB 20.1 pg (26.0-34.0); Mean Corpuscular HGB Conc 31.1 g/dL (31.5-36.5); Mean Corpuscular Volume 65 fL (80-100); Mean Platelet Volume 9.6 fL (9.1-12.4); NEUTROPHILS ABSOLUTE AUTO 3.94 K/mm3 (1.96-9.15); NEUTROPHILS PERCENT AUTO 44 % (41-73); Platelet Count 352 K/mm3 (150-400); RDW Coefficient Variation 13.9 % (11.7-14.2); Red Blood Cell Count 5.47 M/mm3 (4.30-5.90); White Blood Cell Count 9.04 K/mm3 (4.00-11.30)
[2024-07-26 05:43] LABS: Albumin, Blood 3.4 g/dL (3.4-5.0); Anion Gap 10 mmol/L (3-11); Blood Urea Nitrogen 9 mg/dL (8-24); Bun/Creatinine Ratio 10.4 (12.0-20.0); CO2, Blood 26 mmol/L (21-32); Calcium, Blood 9.1 mg/dL (8.5-10.1); Chloride, Blood 108 mmol/L (98-108); Creatinine, Blood 0.86 mg/dL (0.60-1.20); Glomerular Filtration Rate 107 (60-); Glucose, Blood 81 mg/dL (70-99); Phosphorus, Blood 3.2 mg/dL (2.5-4.9); Potassium, Blood 3.9 mmol/L (3.5-5.5); Sodium, Blood 140 mmol/L (136-145)
--- NOTE | 2024-07-26 06:29 | NUR ---
SHIFT SUMMARY - NO ACUTE CHANGES SINCE ASSUMING CARE THIS AM. PT REPORTED A MILD HEADACHE AND LOWER ABDOMINAL PAIN X1, BOTH RELIEVED AFTER MEDICATED FOR PAIN. CALL LIGHT WITHIN REACH. BED IN LOW POSITION. PT INDEPENDENT IN THE ROOM. WILL REPORT OFF TO ONCOMING SHIFT.
[2024-07-26] MEDS ORDERED: Insulin Human Lispro 100 Units/ML 3ML Syringe SC SCH (07:30)
[2024-07-26 07:42] VITALS: BP 150/86
[2024-07-26] MEDS ORDERED: Acetaminophen 325 MG TABLET PO PRN (08:30)
[2024-07-26] MEDS ORDERED: VISBIOME 112.51 EACH PO (12:11)
[2024-07-26] MEDS ORDERED: Acetaminophen650 M1 PO (12:11)
[2024-07-26] MEDS ORDERED: METR500 PO (12:12)
[2024-07-26] MEDS ORDERED: CIPR500 PO (12:12)
[2024-07-26] MEDS ORDERED: ONDA4ODT MM (12:12)
[2024-07-26] MEDS ORDERED: TRAM50 PO (12:12)
--- NOTE | 2024-07-26 16:43 | NUR ---
ASSUMED CARE OF PT. A/O VSS IS HUNGRY AND READY TO LEAVE THIS AFTERNOON, PT DIET WAS ADVANCED AND NATANAEL WELL. LAST IV ANTIBIOTIC GIVEN AT 1200 THE PT WAS DISCHARGED. PT VERBALIZED UNDERSTANDING
== END 2024-07-26 15:23 | disposition home or self-care (01) | DRG 391 ==
LOC: ER 15:44 → MEDS 20:50 → ERHOLD 20:50 → MEDS 22:16
PROVIDERS: Emergency Medicine; Family Medicine; Nurse Practitioner Acute Care; ADMIT Internal Medicine
DX: K57.20 Diverticulitis of large intestine with perforation and abscess without bleeding (principal); K65.1 Peritoneal abscess; K21.9 Gastro-esophageal reflux disease without esophagitis; E78.5 Hyperlipidemia, unspecified; E11.9 Type 2 diabetes mellitus without complications; E66.3 Overweight; D56.3 Thalassemia minor; D64.9 Anemia, unspecified; Z79.4 Long term (current) use of insulin; Z79.899 Other long term (current) drug therapy; Z98.890 Other specified postprocedural states; Z87.19 Personal history of other diseases of the digestive system; Z68.25 Body mass index [BMI] 25.0-25.9, adult; Z28.21 Immunization not carried out because of patient refusal
CPT/HCPCS: 36415; 80048; 80053; 80069; 81003; 82947; 83605; 83690; 83735; 85025; 85610; 96365-59; 96375; 99285-25; A9270; J1171; J1815; J2270; J2405; J2543; J3010; J7120